=== PATIENT | male | born 1930 | race Caucasian/White ===

== ENCOUNTER 2016-12-26 19:34 | Emergency (ER) | payer OTHER ==
[~2016-12-26] VITALS: Ht 167.6 cm; Wt 67.1 kg
--- NOTE | 2016-12-26 19:34 | NUR ---
BIBA TO ER BED 3
--- NOTE | 2016-12-26 19:34 | NUR ---
Patient being evaluated by physician at bedside.
[2016-12-26 19:35] VITALS: BP 133/77
--- NOTE | 2016-12-26 19:40 | NUR ---
86 Y/O BIBA FROM [facility]TENDED CARE W/C/O GENERALIZED WEAKNESS BUT MAINLY LOWER EXTREMITIES. PT DENIES ANY PAIN, NO FALL, NO TRAUMA NOTED. PT STATES SAT DOWN ON THE FLOOR BECAUSE HE STARTED TO FEEL DIZINESS AND WEAKNESS MAINLY TO LOWER EXTREMITIES. ON MATERIAL HANDLING TECHNICIAN, ER MD MADE AWARE.
[2016-12-26] MEDS ORDERED: ORE25 PO (20:01)
[2016-12-26] MEDS ORDERED: MEMA5TAB PO (20:01)
[2016-12-26] MEDS ORDERED: VIT1TABL36 PO (20:01)
[2016-12-26] MEDS ORDERED: VITD1000 PO (20:01)
[2016-12-26] MEDS ORDERED: ASPI81CT89 PO (20:01)
[2016-12-26] MEDS ORDERED: [UNRECOGNIZED DRUG - OTHER] (20:01)
[2016-12-26] MEDS ORDERED: ROC.25 PO (20:01)
[2016-12-26] MEDS ORDERED: LISI-420 PO (20:01)
[2016-12-26] MEDS ORDERED: [UNRECOGNIZED DRUG - CODE] PO (20:01)
[2016-12-26 20:42] LABS: BASOPHILS # (AUTO) 0.1 K/uL (0.00-0.22); BASOPHILS % (AUTO) 0.7 % (0.0-2.0); EOSINOPHILS # (AUTO) 0.1 K/uL (0-0.4); EOSINOPHILS % (AUTO) 1.2 % (0.0-4.0); HEMATOCRIT 26.6 % (36-52); HEMOGLOBIN 8.9 g/dL (12.0-18.0); LYMPHOCYTES # (AUTO) 0.8 K/uL (2.0-11.5); MEAN CORPUSCULAR HEMOGLOBIN 31 pg (27-31); MEAN CORPUSCULAR HGB CONC 33 g/dL (33-37); MEAN CORPUSCULAR VOLUME 93 fL (80-94); MONOCYTES # (AUTO) 0.5 K/uL (0.8-1.0); MONOCYTES % (AUTO) 4.8 % (1.7-9.3); NEUTROPHILS # (AUTO) 9.8 K/uL (1.8-7.7); NEUTROPHILS % (AUTO) 86.3 % (42.2-75.2); PLATELET COUNT (AUTO) 222 K/uL (140-450); RED BLOOD CELL COUNT(AUTO) 2.85 MIL/uL (4.20-6.10); RED CELL DISTRIBUTION WIDTH 12.9 % (11.6-13.7); WHITE BLOOD COUNT (AUTO) 11.3 K/uL (4.8-10.8)
[2016-12-26 20:46] LABS: ANION GAP 13.3 (8-16); CARBON DIOXIDE 23.2 mmol/L (21-32); CHLORIDE 102 mmol/L (98-107); CREATININE 3.1 mg/dL (0.7-1.3); GLUCOSE 189 mg/dL (74-106); POTASSIUM 5.5 mmol/L (3.5-5.1); SODIUM SERUM 133 mmol/L (136-145); UREA NITROGEN, BLOOD 50 mg/dL (7-18)
[2016-12-26] MEDS ORDERED: CALCIUM CHLORIDE 10% 1,000 MG in NACL 0.9% 100 ML IV ONE (20:55)
[2016-12-26] MEDS ORDERED: NACL 0.9% 500 ML IV ONE (20:55)
[2016-12-26] MEDS ORDERED: CALCIUM CHLORIDE 10% 100 MG/ML SYR IVP ONE (21:15)
--- NOTE | 2016-12-26 21:28 | NUR ---
MOVED TO ER BED 4
[2016-12-26 22:23] LABS: ANION GAP 12.5 (8-16); CARBON DIOXIDE 22.7 mmol/L (21-32); CHLORIDE 105 mmol/L (98-107); CREATININE 2.8 mg/dL (0.7-1.3); GLUCOSE 95 mg/dL (74-106); POTASSIUM 5.2 mmol/L (3.5-5.1); SODIUM SERUM 135 mmol/L (136-145); UREA NITROGEN, BLOOD 50 mg/dL (7-18)
[2016-12-26] MEDS ORDERED: INSULIN HUMAN REGULAR 100 UNITS/ML 10 ML VIAL IVP ONE (22:30)
[2016-12-26] MEDS ORDERED: DEXTROSE 50% 50 ML SYR IVP ONE (22:30)
[2016-12-26 23:00] VITALS: BP 121/78
--- NOTE | 2016-12-26 23:00 | NUR ---
Patient discharged with v/s stable. Written and verbal after care instructions given and explained TO PT AND FAMILY. Patient AND FAMILY verbalized understanding. Ambulatory with steady gait. All questions addressed prior to discharge. Advised to follow up with PMD.
--- NOTE | 2016-12-26 23:30 | NUR ---
Minoo britton in EDM - 12/27/16 at 0357 by GUILHERME Patient discharged with v/s stable. Written and verbal after care instructions given and explained TO PT AND FAMILY. Patient AND FAMILY verbalized understanding. Ambulatory with steady gait. All questions addressed prior to discharge. Advised to follow up with PMD.
== END 2016-12-26 23:00 | disposition home or self-care (01) ==
LOC: MED 19:34
DX: E87.5 Hyperkalemia (principal); I12.9 Hypertensive chronic kidney disease with stage 1 through stage 4 chronic kidney disease, or unspecified chronic kidney disease; N18.4 Chronic kidney disease, stage 4 (severe); Z86.2 Personal history of diseases of the blood and blood-forming organs and certain disorders involving the immune mechanism; W18.39XA Other fall on same level, initial encounter; Y93.89 Activity, other specified; Y92.89 Other specified places as the place of occurrence of the external cause; Y99.8 Other external cause status
CPT/HCPCS: 36415; 80048; 84443; 84484; 85025; 93005; 96365; 96375; 99285; J1815; J7030; J3490

== ENCOUNTER 2017-08-29 11:27 | Emergency (ER) | payer OTHER ==
[~2017-08-29] VITALS: Ht 177.8 cm; Wt 81.6 kg
[~2017-08-29 11:27] MED LIST: ASPI81CT89 PO; LISI-420 PO; MEMA5TAB PO; ORE25 PO; ROC.25 PO; VIT1TABL36 PO; VITD1000 PO; [UNRECOGNIZED DRUG - CODE] PO; [UNRECOGNIZED DRUG - OTHER]
--- NOTE | 2017-08-29 11:28 | NUR ---
PT BIBA ALS TO BED 10
[2017-08-29 11:30] VITALS: BP 152/81
--- NOTE | 2017-08-29 11:34 | NUR ---
REPORT GIVEN TO SANGEETHA OCONNOR
--- NOTE | 2017-08-29 11:35 | NUR ---
87Y/F BIB [facility] FROM [facility] WITH C/O RT ARM/ELBOW PAIN S/P FALL WHEN STANDING UP FROM A CHAIR; DENIES ALOC. AAOX4 WITH EVEN AND STEADY GAIT; PATIENT STATES PAIN OF 0/10 AT THIS TIME; VSS; PATIENT POSITIONED FOR COMFORT; HOB ELEVATED; BEDRAILS UP X1; BED DOWN. ER MD MADE AWARE OF PT STATUS.
[2017-08-29] MEDS ORDERED: LIDOCAINE 1% 500 MG/50 ML VIAL INJ ONE (12:20)
--- NOTE | 2017-08-29 12:43 | NUR ---
PT TAKEN TO CT
--- NOTE | 2017-08-29 12:46 | NUR ---
DISCONNECTED IV FLUIDS SO PATIENT CAN BE TAKEN TO CT
[2017-08-29 12:51] LABS: BASOPHILS % (AUTO) 0.8 % (0.0-2.0); EOSINOPHILS # (AUTO) 0.4 K/uL (0-0.4); EOSINOPHILS % (AUTO) 7.4 % (0.0-4.0); HEMATOCRIT 24.3 % (36-52); HEMOGLOBIN 8.2 g/dL (12.0-18.0); LYMPHOCYTES # (AUTO) 1.2 K/uL (2.0-11.5); LYMPHOCYTES % (AUTO) 21.9 % (20.5-51.1); MEAN CORPUSCULAR HEMOGLOBIN 32 pg (27-31); MEAN CORPUSCULAR HGB CONC 34 g/dL (33-37); MEAN CORPUSCULAR VOLUME 94.4 fL (80-94); MONOCYTES # (AUTO) 0.6 K/uL (0.8-1.0); MONOCYTES % (AUTO) 10.9 % (1.7-9.3); NEUTROPHILS # (AUTO) 3.2 K/uL (1.8-7.7); PLATELET COUNT (AUTO) 210 K/uL (140-450); RED BLOOD CELL COUNT(AUTO) 2.58 MIL/uL (4.20-6.10); RED CELL DISTRIBUTION WIDTH 14.2 % (11.6-13.7); WHITE BLOOD COUNT (AUTO) 5.4 K/uL (4.8-10.8)
[2017-08-29 12:57] LABS: ANION GAP 13.3 (8-16); CARBON DIOXIDE 22.9 mmol/L (21-32); CHLORIDE 102 mmol/L (98-107); CREATININE 2.9 mg/dL (0.7-1.3); GLUCOSE 96 mg/dL (74-106); POTASSIUM 5.2 mmol/L (3.5-5.1); SODIUM SERUM 133 mmol/L (136-145); UREA NITROGEN, BLOOD 53 mg/dL (7-18)
[2017-08-29 13:00] LABS: PROTHROMBIN TIME 10.4 secs (10.8-13.4)
--- NOTE | 2017-08-29 13:00 | NUR ---
PT RETURNED FROM CT
[2017-08-29 13:03] LABS: ASPARTATE AMINOTRANSFERASE 17 U/L (15-37); TOTAL BILIRUBIN 0.3 mg/dL (0.0-1.0)
[2017-08-29] MEDS ORDERED: LIDOCAINE JELLY 2% 30 ML TUBE TP ONE (14:18)
[2017-08-29] MEDS ORDERED: NACL 0.9% 1,000 ML IV SCH (14:49)
[2017-08-29] MEDS ORDERED: HYDROcodone/APAP 7.5/325 MG 1 TAB PO PRN (14:50)
[2017-08-29] MEDS ORDERED: ZOLPIDEM 5 MG TAB PO PRN (14:50)
[2017-08-29] MEDS ORDERED: ACETAMINOPHEN 325 MG TAB PO PRN (14:50)
[2017-08-29] MEDS ORDERED: MECLIZINE 25 MG TAB PO PRN (14:50)
--- NOTE | 2017-08-29 15:00 | NUR ---
Patient appears to be resting comfortably in bed.
[2017-08-29 15:08] LABS: APPEARANCE,URINE HAZY (CLEAR); BILIRUBIN,URINE NEGATIVE (NEGATIVE); BLOOD, URINE TRACE-L (NEGATIVE); COLOR,URINE OTHER (YELLOW); LEUKOCYTE ESTERASE ,URINE 3+ (NEGATIVE); NITRITE, URINE NEGATIVE (NEGATIVE); UGLUCOSE NEGATIVE (NEGATIVE)
[2017-08-29] MEDS ORDERED: SODIUM POLYSTYRENE 15 GM/60 ML UDBTL PO ONE (15:15)
[2017-08-29 15:38] LABS: RBC,URINE NONE SEEN /HPF (0-5); WBC,URINE 80-100 /HPF (0-5)
[2017-08-29 15:53] LABS: FREE T4 (FREE THYROXINE) 1.19 ng/dL (0.76-1.46); MAGNESIUM 2.1 mg/dL (1.8-2.4); PHOSPHORUS 4.1 mg/dL (2.5-4.9); THYROID STIMULATING HORMONE 0.64 uIU/mL (0.34-3.74)
[2017-08-29 16:00] VITALS: BP 145/75
--- NOTE | 2017-08-29 16:00 | NUR ---
Patient discharged with v/s stable. Written and verbal after care instructions given and explained. Patient verbalized understanding. Ambulatory with to home. All questions addressed prior to discharge. Advised to follow up with PMD.
[2017-08-29] MEDS ORDERED: DOCUSATE SODIUM 100 MG GELCAP PO SCH (21:00)
== END 2017-08-29 16:00 | disposition home or self-care (01) ==
LOC: MED 11:27 → MTU 14:59 → UNDOADMIN 14:59 → MED 16:00
DX: S41.111A Laceration without foreign body of right upper arm, initial encounter (principal); R55 Syncope and collapse; E87.5 Hyperkalemia; D64.9 Anemia, unspecified; N28.9 Disorder of kidney and ureter, unspecified; I10 Essential (primary) hypertension; F03.90 Unspecified dementia, unspecified severity, without behavioral disturbance, psychotic disturbance, mood disturbance, and anxiety; Z79.899 Other long term (current) drug therapy; W05.0XXA Fall from non-moving wheelchair, initial encounter; Y93.89 Activity, other specified; Y92.89 Other specified places as the place of occurrence of the external cause; Y99.8 Other external cause status
CPT/HCPCS: 36415; 70450; 71045; 73080; 80053; 81001; 82150; 83036; 83690; 83735; 83880; 84100; 84439; 84443; 84484; 85025; 85610; 85730; 87086; 87186; 93005; 99285; J2001

== ENCOUNTER 2019-07-02 14:54 | Inpatient (IN) | payer OTHER ==
[~2019-07-02] VITALS: Ht 182.9 cm; Wt 63.5 kg
[~2019-07-02 14:54] MED LIST changes: +ASPI-1822 PO; -ASPI81CT89 PO
--- NOTE | 2019-07-02 14:54 | NUR ---
BIBA TO ER BED 7
[2019-07-02 14:59] VITALS: BP_SYST 142
--- NOTE | 2019-07-02 15:00 | NUR ---
dr au at bedside evaluating pt.
--- NOTE | 2019-07-02 15:15 | NUR ---
CODE BRAIN INITIATED; PT TAKE TO CT SCAN VIA GURNEY BY LLUVIA ZHU, RN & EMT
--- NOTE | 2019-07-02 15:15 | NUR ---
galileo from [facility] . his called ems for dementia getting worse; PT CAN'T HOLD A CUP. aao x 2. blood sugar 130. storke negative. med hx: dementia,HTN. PT AWAKE , AFIBRILE , SCE , CBS, FLAT SOFT ABDOMEN NABS NONTENDER.ABLE RAISE UE AND LE.
--- NOTE | 2019-07-02 15:29 | NUR ---
PT BACK FROM CT SCAN
--- NOTE | 2019-07-02 15:50 | NUR ---
PT COMFORTABLY LYING IN BED , AWAKE , ALERT,AFIBRILE .STABLE V/S.SIDE RAILS UP X2 AND LOCK.
[2019-07-02 15:57] LABS: BASOPHILS % (AUTO) 0.6 % (0.0-2.0); EOSINOPHILS # (AUTO) 0.5 K/uL (0-0.4); EOSINOPHILS % (AUTO) 7.9 % (0.0-4.0); HEMATOCRIT 26.5 % (36-52); HEMOGLOBIN 8.8 g/dL (12.0-18.0); LYMPHOCYTES # (AUTO) 1.2 K/uL (2.0-11.5); LYMPHOCYTES % (AUTO) 20.7 % (20.5-51.1); MEAN CORPUSCULAR HEMOGLOBIN 32 pg (27-31); MEAN CORPUSCULAR HGB CONC 33 g/dL (33-37); MEAN CORPUSCULAR VOLUME 96.7 fL (80-94); MONOCYTES # (AUTO) 0.5 K/uL (0.8-1.0); MONOCYTES % (AUTO) 8.6 % (1.7-9.3); NEUTROPHILS # (AUTO) 3.7 K/uL (1.8-7.7); NEUTROPHILS % (AUTO) 62.2 % (42.2-75.2); PLATELET COUNT (AUTO) 204 K/uL (140-450); RED BLOOD CELL COUNT(AUTO) 2.74 MIL/uL (4.20-6.10); RED CELL DISTRIBUTION WIDTH 14.3 % (11.6-13.7)
[2019-07-02] MEDS ORDERED: MORPHINE SULFATE 2 MG/ML SYR IVP PRN (16:15)
[2019-07-02] MEDS ORDERED: DOCUSATE SODIUM 100 MG GELCAP PO PRN (16:15)
[2019-07-02] MEDS ORDERED: HYDROcodone/APAP 5/325 MG 1 TAB TAB PO PRN (16:15)
[2019-07-02] MEDS ORDERED: ZOLPIDEM 5 MG TAB PO PRN (16:15)
[2019-07-02] MEDS ORDERED: ACETAMINOPHEN 325 MG TAB PO PRN (16:15)
[2019-07-02] MEDS ORDERED: ONDANSETRON 4 MG/2 ML VIAL IM/IVP PRN (16:15)
[2019-07-02] MEDS ORDERED: MECLIZINE 25 MG TAB PO PRN (16:15)
[2019-07-02] MEDS ORDERED: MID5 PO (16:26)
--- NOTE | 2019-07-02 16:40 | NUR ---
Patient will be admitted to care of DR Hill. Admited to [facility]. Will go to room 107 B. Belongings list completed. Report to abe diggs.
--- NOTE | 2019-07-02 16:40 | NUR ---
RECEIVED REPORT FROM ER NURSE, PT BROUGHT IN ON WILDA, PT ON 2L O2 NC, PT STABLE, NO SIGNS OF DISTRESS NOTED, PT HAS LEFT AC 20G SALINE LOCK, PT ON TELEMONITOR, INTRODUCE PT TO ROOM, BED LOW POSITION, BED ALARM ON , CALL LIGHT WITHIN REACH.
[2019-07-02 16:46] LABS: PROTHROMBIN TIME 9.9 secs (10.8-13.4)
[2019-07-02 16:50] LABS: CHOL/HDL RATIO 2.3 (1-4.5); MAGNESIUM 2.3 mg/dL (1.8-2.4); PHOSPHORUS 4.7 mg/dL (2.5-4.9); THYROID STIMULATING HORMONE 0.66 uIU/mL (0.34-3.74)
[2019-07-02] MEDS: NACL 0.9% 1,000 ML IV SCH (17:01)
[2019-07-02 17:17] LABS: ANION GAP 16.1 (8-16); ASPARTATE AMINOTRANSFERASE 15 U/L (15-37); CHLORIDE 107 mmol/L (98-107); CREATININE 3.3 mg/dL (0.6-1.3); GLUCOSE 100 mg/dL (74-106); POTASSIUM 5.1 mmol/L (3.5-5.1); SODIUM SERUM 143 mmol/L (136-145); TOTAL BILIRUBIN 0.2 mg/dL (0.0-1.0); UREA NITROGEN, BLOOD 55 mg/dL (7-18)
--- NOTE | 2019-07-02 19:20 | NUR ---
GAVE REPORT TO NIGHT NURSE FOR CONTINUITY OF CARE, PT IS STABLE.
--- NOTE | 2019-07-02 19:22 | NUR ---
RECEIVED PT FROM DOMINIC RN PT IS CONFUSED AAOX1 IV OUT BUT A NEW IV WILL BE INSERTED , PT INCONTINENT, ON TELEMETRY SR PEACKED T , ALARM ON PT ON CLOSE MONITORING CLOSE TO NURSE STATION, INITIAL ASSESSMENT DONE
[2019-07-02 20:00] VITALS: BP 135/81
[2019-07-02 20:44] LABS: BILIRUBIN,URINE NEGATIVE (NEGATIVE); BLOOD, URINE NEGATIVE (NEGATIVE); COLOR,URINE YELLOW (YELLOW); LEUKOCYTE ESTERASE ,URINE TRACE (NEGATIVE); NITRITE, URINE NEGATIVE (NEGATIVE); UGLUCOSE NEGATIVE (NEGATIVE)
[2019-07-02 20:48] LABS: APPEARANCE,URINE HAZY (CLEAR)
[2019-07-02 21:06] LABS: RBC,URINE NONE SEEN /HPF (0-5); WBC,URINE 0-5 /HPF (0-5)
[2019-07-02] MEDS: MEMANTINE 10 MG TAB PO SCH (21:20)
[2019-07-02] MEDS: LORazepam 2 MG/ML VIAL IM/IVP PRN (21:52)
--- NOTE | 2019-07-02 22:00 | NUR ---
PT AGITATED ATIVAN GIVEN ORDER ON CLOSE MONITORING
[2019-07-03] VITALS: BP 138/70
--- NOTE | 2019-07-03 02:05 | NUR ---
PT REPOSITIONED Q2H, SLEEPING WELL AT THIS TIME ON TELMETRY SR
[2019-07-03 04:00] VITALS: BP 149/84
--- NOTE | 2019-07-03 05:00 | NUR ---
PT IS ENDORSED TO MISBAH LENNON FOR CONTINUE OF CARE
--- NOTE | 2019-07-03 05:00 | NUR ---
RECD RESTING IN BED, SLEEPING COMFORTABLY BUT EASILY AROUSABLE. OCCASIONALLY WAKES UP AND TRIES TO GET OUT O BED. IV OF NS AT 60 ML/HR INFUSING LEFT FOREARM G22. SAFETY MEASURES ENFORCED, BED IN THE LOWEST POSITION. BED ON ALARM. NO APPEARANCE OF PAIN NOTED, FLACC -0.
--- NOTE | 2019-07-03 05:30 | NUR ---
CUSTOMS EXAMINER CAME AND DRAW BLOOD FOR AM LABS. COOPERATIVE.
[2019-07-03 06:23] LABS: BASOPHILS % (AUTO) 0.5 % (0.0-2.0); EOSINOPHILS # (AUTO) 0.5 K/uL (0-0.4); EOSINOPHILS % (AUTO) 8.2 % (0.0-4.0); HEMATOCRIT 24.6 % (36-52); HEMOGLOBIN 8.1 g/dL (12.0-18.0); LYMPHOCYTES # (AUTO) 1.7 K/uL (2.0-11.5); MEAN CORPUSCULAR HEMOGLOBIN 32 pg (27-31); MEAN CORPUSCULAR HGB CONC 33 g/dL (33-37); MEAN CORPUSCULAR VOLUME 95.8 fL (80-94); MONOCYTES # (AUTO) 0.5 K/uL (0.8-1.0); MONOCYTES % (AUTO) 8.7 % (1.7-9.3); NEUTROPHILS # (AUTO) 3.1 K/uL (1.8-7.7); NEUTROPHILS % (AUTO) 52.6 % (42.2-75.2); PLATELET COUNT (AUTO) 189 K/uL (140-450); RED BLOOD CELL COUNT(AUTO) 2.57 MIL/uL (4.20-6.10); RED CELL DISTRIBUTION WIDTH 13.9 % (11.6-13.7); WHITE BLOOD COUNT (AUTO) 5.8 K/uL (4.8-10.8)
[2019-07-03 06:42] LABS: ANION GAP 15.5 (8-16); CHLORIDE 108 mmol/L (98-107); CREATININE 3.1 mg/dL (0.6-1.3); GLUCOSE 85 mg/dL (74-106); POTASSIUM 4.5 mmol/L (3.5-5.1); SODIUM SERUM 143 mmol/L (136-145); UREA NITROGEN, BLOOD 52 mg/dL (7-18)
[2019-07-03 06:49] LABS: MAGNESIUM 1.9 mg/dL (1.8-2.4); PHOSPHORUS 3.8 mg/dL (2.5-4.9)
--- NOTE | 2019-07-03 06:49 | NUR ---
Patient's Plan of Care was discussed and reviewed with DIRECTOR OF GUIDANCE: MISBAH BRANDON
--- NOTE | 2019-07-03 07:12 | NUR ---
STILL SLEEPING COMFORTABLY. RESPIRATION EVEN AND UNLABORED. ENDORSED TO AM SHIFT NURSE FOR CONTINUITY OF CARE.
--- NOTE | 2019-07-03 07:16 | NUR ---
RECEIVED PATIENT FROM MEDIA MARKETING SPECIALIST NURSE FOR CONTINUITY OF CARE. PATIENT IS SLEEPING AT THIS TIME. RESPIRATIONS EVEN AND UNLABORED, ROOM AIR. VISIBLE CHEST RISE NOTED. PATIENT IS MED-SURG NOW. ABDOMEN SOFT, FLAT, AND NONTENDER. SKIN WARM, DRY, AND INTACT. BRUISING IN ARMS NOTED. IV IN THE LEFT FOREARM G22, RUNNING NS AT 60 ML/HR. IV IS FLUSHING WELL. PATIENT IS BEDBOUND. BED ALARM ACTIVATED. PATIENT IS FULL CODE. STANDARD. ISOLATION. MECHANICAL SOFT DIET. FALL PRECAUTIONS IN PLACE. BED IN LOW POSITION. CALL LIGHT IS WITHIN REACH. WILL CONTINUE TO MONITOR.
--- NOTE | 2019-07-03 07:43 | NUR ---
SHAYLEE OSPINA AND THE RESIDENT DOCTORS MADE ROUNDS
--- NOTE | 2019-07-03 07:47 | NUR ---
SPOKE WITH DR. HOANG REGARDING PATIENT'S BRADYCARDIA AND THAT PATIENT IS ON MED-SURG. STATED THAT SHE WILL PUT HIM BACK ON TELE MONITORING.
[2019-07-03 08:00] VITALS: BP 151/77
[2019-07-03] MEDS ORDERED: CRUSHER, PILL MC ONE (08:26)
[2019-07-03] MEDS: CHOLECALCIFEROL 1,000 IU TAB PO SCH (08:28)
[2019-07-03] MEDS: MEMANTINE 10 MG TAB PO SCH ×2 (08:29→21:16)
[2019-07-03] MEDS: CALCITRIOL 0.25 MCG CAPLF PO SCH (08:29)
[2019-07-03] MEDS: ASPIRIN 81 MG TAB.CHEW PO SCH (08:29)
[2019-07-03] MEDS: amLODIPine 5 MG TAB PO SCH (08:30)
--- NOTE | 2019-07-03 08:38 | NUR ---
DR. HERRERA, NEUROLOGIST, AT BEDSIDE
--- NOTE | 2019-07-03 08:42 | NUR ---
PT IS IN BED ALERT, AWAKE, AND EATING BREAKFAST IN BED. NO SIGNS OF DISTRESS NOTED. MEDICATIONS ADMINISTERED PER ORDER AND TOLERATED WELL. SAFETY MEASURES IN PLACE, CALL LIGHT WITHIN REACH, AND CONTINUE TO MONITOR.
--- NOTE | 2019-07-03 08:43 | NUR ---
PATIENT HAS BEEN SCREENED AND CATEGORIZED MODERATE NUTRITION RISK. PATIENT WILL BE SEEN WITHIN 3-5 DAYS OF ADMISSION. 07/05/19 07/07/[address]
[2019-07-03] MEDS: NACL 0.9% 1,000 ML IV SCH (08:55)
[2019-07-03] MEDS ORDERED: LISINOPRIL 20 MG TAB PO SCH (09:00)
[2019-07-03] MEDS ORDERED: aMILoride 5 MG TAB PO SCH (09:00)
[2019-07-03] MEDS: ASCORBIC ACID 500 MG TAB PO SCH (09:32)
--- NOTE | 2019-07-03 09:32 | NUR ---
GIVEN VITAMIN C, CRUSHED AND MIXED WITH APPLESAUCE. EXPLAIN MEDICATION. PATIENT VERBALIZED UNDERSTANDING. BED IN LOW POSITION. CALL LIGHT IS WITHIN REACH. WILL CONTINUE TO MONITOR.
--- NOTE | 2019-07-03 10:25 | NUR ---
SPOKE WITH DR. HOANG REGARDING'S PATIENT'S 'S REQUEST TO BE UPDATED BY THE DOCTOR. STATED SHE WILL CALL NOW.
--- NOTE | 2019-07-03 10:45 | NUR ---
GIVEN UPDATE TO LEIF, PATIENT'S DAUGHTER, ABOUT PATIENT'S STATUS
--- NOTE | 2019-07-03 11:22 | NUR ---
ECHO BEING COMPLETED AT BEDSIDE
[2019-07-03 12:00] VITALS: BP 117/77
--- NOTE | 2019-07-03 12:37 | NUR ---
HANG NEW IV BAG OF NS AT A RATE OF 60 ML/HR. PATIENT IS CURRENTLY EATING LUNCH AT THIS TIME.
--- NOTE | 2019-07-03 13:11 | NUR ---
PATIENT IS TRYING TO GET OUT OF BED. BED ALARM IS ON. BED IN LOW POSITION. CALL LIGHT IS WITHIN REACH. WILL DO FREQUENT CHECKS.
--- NOTE | 2019-07-03 13:25 | NUR ---
PER PHYSICAL THERAPIST, PATIENT WAS UNABLE TO AMBULATE. MAX ASSIST.
--- NOTE | 2019-07-03 13:39 | NUR ---
PATIENT IS TALKING TO HIS ON THE PHONE.
--- NOTE | 2019-07-03 13:51 | NUR ---
DR. HOANG SPOKE WITH THE PATIENT. SHE STATED THAT PATIENT MIGHT BE DISCHARGED TOMORROW DEPENDING ON THE ECHO RESULT. PATIENT VERBALIZED UNDERSTANDING. IS ALSO AWARE
--- NOTE | 2019-07-03 15:16 | NUR ---
PATIENT IS AWAKE. WATCHING PEOPLE PASS BY THE [address] WAY. NO SIGNS OF DISTRESS NOTED. BED IN LOW POSITION. CALL LIGHT IS WITHIN REACH. WILL CONTINUE TO MONITOR
--- NOTE | 2019-07-03 15:40 | NUR ---
DC PLANNIN YRS OLD MALE PATIENT WAS ADMITTED FROM HOME WITH A DX OF GENERALIZE WEAKNESS AND TIA. PT HAS A HX OF HTN, AND DEMENTIA.CT HEAD SHOWED NO ACUTE INTRACRANIAL HEMORRHAGE,. STARTED IVF, MECLIZINE PRN ECHO PENDING US RENAL AND BLADDER PENDING ,NEURO CONSULTED WITH DR HERRERA. DC PLAN TO GO HOME WHEN STABLE. CM TO FOLLOW. Addendum: 07/04/19 at 1036 by Claudia Stallings CM RECEIVED AN ORDER TO DC HOME WITH HOME HEALTH FOR PT. CONTACTED PATIENT'S DES LITTLE AT [phone] TO DISCUSS DC PLANNING AND IS IN AGREEMENT. IMM AND CHOICE OF VENDOR LETTERS DISCUSSED WELL. SHE STATED SHE WILL BE IN THE HOSPITAL TO DATA WAREHOUSE CONSULTANT HER . MET WITH THE PATIENT'S AT THE [facility], SHE SIGNED THE PAPER WORKS. COPIES PLACED IN THE CHART. Addendum: 07/04/19 at 1043 by Claudia Stallings CM CLINICALS SENT TO [facility] AT [phone]. TO FOLLOW UP. Addendum: 07/04/19 at 1108 by Claudia Stallings CM CONTACTED [facility] OF [facility] AT [phone], ABLE TO SPEAK TO ЕК[facility]РИН[facility] (INTAKE). SHE STATED THE ORDER [facility] AND IF IT IS REALLY FOR THEM TO CHANGE THE ORDER TO [facility]. DR. HOANG MADE AWARE. NEW ORDER FAXED TO [facility]. WILL FOLLOW UP. Addendum: 07/04/19 at 1201 by Claudia Stallings CM PER [facility], THEY ARE ABLE TO ACCEPT THE PATIENT.
[2019-07-03 16:00] VITALS: BP 152/73
--- NOTE | 2019-07-03 17:55 | NUR ---
PATIENT IS EATING DINNER AT THIS TIME.
--- NOTE | 2019-07-03 18:54 | NUR ---
PATIENT IS RESTING AT THIS TIME. NO SIGNS OF DISTRESS NOTED. BED IN LOW POSITION. CALL LIGHT IS WITHIN REACH. WILL CONTINUE TO MONITOR
--- NOTE | 2019-07-03 19:12 | NUR ---
ENDORSED TO RELIGION DEPARTMENT CHAIR NURSE FOR CONTINUITY OF CARE. PT IS IN STABLE CONDITION WITH NO SIGNS OF DISTRESS NOTED.
--- NOTE | 2019-07-03 19:13 | NUR ---
RECEIVED ENDORSEMENT FROM AM SHIFT RN. PATIENT IS AWAKE. ALERT AND CONFUSED. PATIENT IS TRYING TO GET OOB. ASSISTED AND RE-ORIENT PATIENT AND TOLD HIM NOT TO GET UP UNASSISTED. LOW BED AND BED ALARM ACTIVATED. CALL LIGHT WITHIN REACH. DENIES PAIN. NO SOB NOTED. IV SITE LFA G20. INTACT. PLAN OF CARE WAS DISCUSSED.
[2019-07-03 20:00] VITALS: BP 161/83
[2019-07-03] MEDS ORDERED: ATORVASTATIN 20 MG TAB PO SCH (21:00)
--- NOTE | 2019-07-03 21:18 | NUR ---
PATIENT IS AWAKE. DENIES PAIN. DUE MEDS GIVEN ORDERED. TOLERATED WELL. MED ED PROVIDED. REINFORCEMENT NEEDED.
[2019-07-04] VITALS: BP 157/76
[2019-07-04] MEDS: LORazepam 2 MG/ML VIAL IM/IVP PRN (00:53)
--- NOTE | 2019-07-04 00:53 | NUR ---
PATIENT IS ANXIOUS AND TRYING TO GET OOB UNASSISTED. RE-ORIENTED. EXPLAINED TO TRY TO GET SOME SLEEP. ATIVAN 1MG IVP GIVEN PRN ANXIETY PER MD ORDER. LINH WELL. MED ED PROVIDED. REINFORCEMENT NEEDED. NO SOB NOTED. DENIES PAIN. LOW BED AND BED ALARM IN PLACE. CALL LIGHT WITHIN REACH. WILL CONTINUE TO MONITOR.
[2019-07-04] MEDS: NACL 0.9% 1,000 ML IV SCH ×2 (01:35→04:58)
--- NOTE | 2019-07-04 01:40 | NUR ---
PATIENT IS AWAKE AND STILL TRYING TO GET OOB. REORIENTED. REPOSITIONED HIM WITH THE FISH INSPECTOR'S HELP. LOW BED AND BED ALARM IN PLACE. CALL LIGHT WITHIN REACH. KEPT CLEAN, DRY AND COMFORTABLE. WILL CONTINUE TO MONITOR.
[2019-07-04] MEDS ORDERED: HALOPERIDOL IM 5 MG/ML VIAL IM SCH (03:00)
--- NOTE | 2019-07-04 03:32 | NUR ---
INFORMED MD THAT PATIENT IS TRYING TO GET OOB. MD ORDERED HALDOL 1MG IM ONCE. ORDER NOTED AND CARRIED OUT. HALDOL 1MG IM GIVEN ORDERED. LINH WELL. NO SOB NOTED.
[2019-07-04 04:00] VITALS: BP 149/77
--- NOTE | 2019-07-04 04:00 | NUR ---
PATIENT IS RESTING. ASLEEP AND NOT TRYING TO GET OOB. LOW BED AND BED ALARM IN PLACE.
--- NOTE | 2019-07-04 07:09 | NUR ---
ENDORSE PATIENT TO AM SHIFT RN FOR CONTINUITY OF CARE. PATIENT IS SLEEPING AT THIS TIME. NO SOB NOTED.
--- NOTE | 2019-07-04 07:10 | NUR ---
RECEIVED REPORT FROM WOODWIND INSTRUMENTS INSPECTOR NURSE. PT IS CURRENTLY SLEEPING WITH NO SIGNS OF DISTRESS NOTED. PT IS ON ROOM AIR, RESPIRATIONS ARE CLEAR AND UNLABORED WITH VISIBLE CHEST RISE AND FALL. SKIN IS INTACT, IV IS PATENT AND ASYMPTOMATIC WITH FLUIDS RUNNING PER ORDER. PLAN OF CARE HAS BEEN REVIEWED, SAFETY MEASURES IN PLACE, CALL LIGHT WITHIN REACH AND WILL CONTINUE TO MONITOR.
[2019-07-04 07:40] LABS: BASOPHILS # (AUTO) 0.1 K/uL (0.00-0.22); BASOPHILS % (AUTO) 1.1 % (0.0-2.0); EOSINOPHILS # (AUTO) 0.2 K/uL (0-0.4); HEMATOCRIT 24.3 % (36-52); HEMOGLOBIN 8.2 g/dL (12.0-18.0); LYMPHOCYTES # (AUTO) 1.3 K/uL (2.0-11.5); LYMPHOCYTES % (AUTO) 16.5 % (20.5-51.1); MEAN CORPUSCULAR HEMOGLOBIN 32 pg (27-31); MEAN CORPUSCULAR HGB CONC 34 g/dL (33-37); MEAN CORPUSCULAR VOLUME 95.9 fL (80-94); MONOCYTES # (AUTO) 0.6 K/uL (0.8-1.0); MONOCYTES % (AUTO) 7.3 % (1.7-9.3); NEUTROPHILS # (AUTO) 5.7 K/uL (1.8-7.7); NEUTROPHILS % (AUTO) 72.1 % (42.2-75.2); PLATELET COUNT (AUTO) 185 K/uL (140-450); RED BLOOD CELL COUNT(AUTO) 2.53 MIL/uL (4.20-6.10); WHITE BLOOD COUNT (AUTO) 7.9 K/uL (4.8-10.8)
[2019-07-04 07:47] LABS: ANION GAP 16.4 (8-16); CARBON DIOXIDE 21.4 mmol/L (21-32); CHLORIDE 110 mmol/L (98-107); CREATININE 2.8 mg/dL (0.6-1.3); GLUCOSE 86 mg/dL (74-106); POTASSIUM 4.8 mmol/L (3.5-5.1); SODIUM SERUM 143 mmol/L (136-145); UREA NITROGEN, BLOOD 43 mg/dL (7-18)
[2019-07-04 07:57] LABS: MAGNESIUM 1.8 mg/dL (1.8-2.4); PHOSPHORUS 3.5 mg/dL (2.5-4.9)
[2019-07-04 08:00] VITALS: BP 141/72
[2019-07-04] MEDS ORDERED: FERROUS SULFATE 325 MG TABEC PO SCH (08:00)
[2019-07-04 08:07] LABS: FERRITIN 95 ng/mL (30-400); FOLIC ACID > 20.00 ng/mL (>3.0)
[2019-07-04] MEDS: ASPIRIN 81 MG TAB.CHEW PO SCH (08:42)
[2019-07-04] MEDS: ASCORBIC ACID 500 MG TAB PO SCH (08:42)
[2019-07-04] MEDS: CHOLECALCIFEROL 1,000 IU TAB PO SCH (08:43)
[2019-07-04] MEDS: MEMANTINE 10 MG TAB PO SCH (08:43)
[2019-07-04] MEDS: CALCITRIOL 0.25 MCG CAPLF PO SCH (08:43)
[2019-07-04] MEDS: amLODIPine 5 MG TAB PO SCH (08:44)
--- NOTE | 2019-07-04 08:58 | NUR ---
PT IS ALERT AND AWAKE IN BED WITH NO COMPLAINTS OF PAIN AT THIS TIME. MEDICATIONS ADMINISTERED PER ORDER AND TOLERATED WELL. SAFETY MEASURES IN PLACE, CALL LIGHT WITHIN REACH, AND WILL CONTINUE TO MONITOR.
[2019-07-04] MEDS ORDERED: AMLO5TAB PO (09:03)
[2019-07-04 09:43] VITALS: BP 143/79
--- NOTE | 2019-07-04 10:11 | NUR ---
CALLED DES LITTLE, OF THE PATIENT, FOR BUNKER WORKER
--- NOTE | 2019-07-04 10:20 | NUR ---
UNABLE TO SIGN DISCHARGE PAPERWORK. EXPLAINED DISCHARGE INSTRUCTIONS. PATIENT VERBALIZED UNDERSTANDING. PATIENT IS UP TO DATE WITH PNA AND FLU VACCINES. DISCONTINUED IV AND REMOVED ID BAND
--- NOTE | 2019-07-04 10:23 | NUR ---
DISCHARGE PATIENT VIA WHEELCHAIR. MILAGROS BLACK, ACCOMPANIED THE PATIENT. DES IS PICKING THE PATIENT UP
[2019-07-04 14:42] LABS: TRANSFERRIN 157 mg/dL (200 - 370)
== END 2019-07-04 10:23 | disposition home or self-care (01) | DRG 73 ==
LOC: MED 14:54 → MTU 16:15
PROVIDERS: ADMIT General Practice; ATTEND General Practice
DX: G90.8 Other disorders of autonomic nervous system (principal); N17.0 Acute kidney failure with tubular necrosis; E44.0 Moderate protein-calorie malnutrition; Z68.1 Body mass index [BMI] 19.9 or less, adult; I10 Essential (primary) hypertension; D64.9 Anemia, unspecified; E86.0 Dehydration; G30.9 Alzheimer's disease, unspecified; F02.80 Dementia in other diseases classified elsewhere, unspecified severity, without behavioral disturbance, psychotic disturbance, mood disturbance, and anxiety; Z79.899 Other long term (current) drug therapy; Z87.891 Personal history of nicotine dependence; Z79.82 Long term (current) use of aspirin
CPT/HCPCS: 36415; 70450; 71045; 76770; 80048; 80053; 81001; 82306; 82550; 82607; 82728; 82746; 83036; 83540; 83690; 83735; 83880; 84100; 84134; 84443; 84484; 85025; 85045; 85610; 85730; 86886; 86900; 86901; 87081; 93005; 93880; 97110; 97112; 97116; 97161-GP; 97530; 99285; J1630; J1644; J2060; J7030; Q0092